=== PATIENT | male | born 1970 | race Native Hawaiian/Other Pacific Islander ===

== ENCOUNTER → 2020-07-01 | Outpatient (CLI) | payer OTHER | LOC: INF 15:17 | PROVIDERS: ATTEND Internal Medicine | DX: Z23 Encounter for immunization (principal) ==

== ENCOUNTER 2020-07-28 13:37 | Outpatient (CLI) | payer OTHER | END 2020-07-28 21:21 | disposition home or self-care (01) | LOC: INF 13:37 | PROVIDERS: ATTEND Internal Medicine | DX: Z23 Encounter for immunization (principal) | CPT/HCPCS: 96372 ==